=== PATIENT | male | born 1980 | race Caucasian/White ===

== ENCOUNTER 2017-01-07 14:46 | Outpatient (CLI) | payer OTHER | END 2017-01-07 14:47 | disposition home or self-care (01) | DX: R68.82 Decreased libido (principal) ==

== ENCOUNTER 2017-08-12 15:49 | Outpatient (CLI) | payer OTHER ==
[2017-08-12 20:28] LABS: FOLLICLE STIMULATING HORMONE 6.22 mIU/mL
[2017-08-12 20:29] LABS: LUTEINIZING HORMONE 5.39 mIU/mL
== END 2017-08-12 15:50 | disposition home or self-care (01) ==
LOC: LAB.R 15:49 → LAB 15:50
PROVIDERS: ATTEND Family Medicine
DX: R68.82 Decreased libido (principal)
CPT/HCPCS: 36415; 83001; 83002; 84403

== ENCOUNTER 2017-08-23 14:52 | Outpatient (CLI) | payer OTHER ==
[2017-08-23 14:33] LABS: FOLLICLE STIMULATING HORMONE 5.11 mIU/mL
[2017-08-23 14:34] LABS: LUTEINIZING HORMONE 1.46 mIU/mL
== END 2017-08-23 14:53 | disposition home or self-care (01) ==
LOC: LAB.WCP 14:52
PROVIDERS: ATTEND Family Medicine
DX: R68.82 Decreased libido (principal)
CPT/HCPCS: 36415; 83001; 83002; 84403

== ENCOUNTER 2017-08-30 08:00 | Outpatient (CLI) | payer OTHER | END 2017-08-30 08:01 | disposition home or self-care (01) | LOC: LAB.WCP 08:00 | PROVIDERS: ATTEND Family Medicine | DX: E29.8 Other testicular dysfunction (principal) | CPT/HCPCS: 36415; 84403 ==

== ENCOUNTER → 2018-07-24 | Outpatient (CLI) | payer OTHER | LOC: LAB.WCP 14:13 | PROVIDERS: ATTEND Family Medicine | DX: E29.8 Other testicular dysfunction (principal) | CPT/HCPCS: 36415; 84403 ==

== ENCOUNTER 2019-03-09 13:48 | Outpatient (CLI) | payer OTHER | END 2019-03-09 13:49 | disposition home or self-care (01) | LOC: LAB.WCP 13:48 | PROVIDERS: ATTEND Family Medicine | DX: E29.1 Testicular hypofunction (principal) | CPT/HCPCS: 36415; 84403 ==

== ENCOUNTER 2024-06-17 14:14 | Outpatient (CLI) | payer OTHER | END 2024-06-17 14:15 | disposition home or self-care (01) | LOC: LAB.S 14:14 | PROVIDERS: ATTEND Emergency Medicine | DX: L03.116 Cellulitis of left lower limb (principal) | CPT/HCPCS: 87070; 87205 ==